=== PATIENT | male | born 1985 | race African-American/Black ===

== ENCOUNTER 2025-08-23 11:23 | Emergency (ER) | payer OTHER, SELFPAY ==
[2025-08-23] VITALS (10 sets, daily range): BP systolic 126–151; BP diastolic 79–101; PULSE 66–81; TEMP 36.9; O2SAT 97; BMI 33.7
--- NOTE | 2025-08-23 11:45 | ECG_ITS ---
[facility] Test Date: 2025-08-23 Pat Name: ELOISE CASAREZ Department: Room: - Gender: Male [employer] Jailer: : 1985 Requested By: [id number] Order Number: [id number] Reading MD: JUAN PABLO LEWIS M.D. Measurements Intervals [place] Rate: 70 P: 43 [place]: 174 QRS: 71 QRSD: 94 T: 32 QT: 360 QTc: 380 Interpretive Statements 1100 Sinus rhythm 9110 normal ECG No previous ECG available for comparison Electronically Signed On 08-23-2025 14:20:58 EST by JUAN PABLO LEWIS M.D.
--- NOTE | 2025-08-23 11:46 | XR_ITS ---
[facility] [place] [address] Patient Name: ELOISE CASAREZ MRN: [id number] date: 1985 Sex: M Assigned Patient Location: ER Current Patient Location: ED.MAIN Accession/Order Number: [id number] Exam Date: 08/23/2025 12:15 Report Date: 08/23/2025 12:54 At the request of: YAMILET GARCIA MD Procedure: XR chest 1V PORTABLE AP ERECT CHEST 1157 hours CLINICAL HISTORY: Hypertension . Chest pressure and hemoptysis. Headaches, dizziness and blurred vision. COMPARISON: None The heart is within normal limits. There is no vascular congestion. The lungs, as visualized, are clear. There is no effusion or pneumothorax. The osseous structures are intact. XR/XR chest 1V IMPRESSION: NO ACUTE FINDINGS Impression dictated by: Quin Cabrera M.D. 08/23/2025 12:54 PM Dictation Location: [place] [address] Electronically authenticated by: [id number] Y Date: 08/23/2025 12:54
--- NOTE | 2025-08-23 11:46 | ED_ITS ---
HPI HPI - General Adult General Chief complaint: Headache Stated complaint: HEADACHE BLURRED VISION Time Seen by Provider: 08/23/25 11:26 Source: patient Mode of arrival: walk-in History of Present Illness HPI narrative: 40-year-old male presents for complaints of elevated blood pressure and abdominal pain. He said the abdominal pain is a small localized area of the epigastric region for a few months. He states that last week he was driving and he was confused for a few minutes and that resolved and has not recurred. He checked his blood pressure and it was high and he was worried. He has never been treated for hypertension though there is a family history of it. No vomiting. He also states he has been coughing up some blood. Related Data Previous Rx's ?Medication ?Instructions ?Recorded esomeprazole magnesium 20 mg 20 mg PO DAILY 28 days #2 8 caps 08/23/25 capsule,delayed release (Nexium) Allergies Allergy/AdvReac Type Severity Reaction Status Date / Time fentanyl Allergy overdose Verified 08/23/25 11:28 Review of Systems ROS Narrative A ten point review of systems is negative except as noted above. PFSH PFSH Social History Little interest or pleasure in doing things: not at all Feeling down, depressed, or hopeless: not at all Exam Narrative Exam Narrative: Nurses note and vital signs reviewed General:The patient appears well and in no apparent distress.Patient is resting comfortably on cart. Skin:Warm, dry, no pallor noted.There is no rash noted. Head:Normocephalic, atraumatic Eye: Normal conjunctiva, no drainage Ears, Nose, Mouth, and Throat: oral mucosa is moist. Nares patent. Cardiovascular:Regular Rate and Rhythm Respiratory:Patient is in no distress, no accessory muscle use, lungs are clear to auscultation, no wheezing, rales or rhonchi Back:non-tender, no CVA tenderness bilaterally to percussion. GI:Normal bowel sounds, mild tenderness to palpation in the epigastric area. No masses or distention Musculoskeletal: The patient has no evidence of calf tenderness, no pitting edema, symmetrical pulses noted bilaterally Neurological:A&O, normal speech; upper lower extremity strength 5 out of 5 and symmetric Psychiatric:Cooperative Constitutional Vital Signs, click to edit/add: Last Vital Signs Temp 98.4 F 08/23/25 11:28 Pulse 69 08/23/25 12:51 Resp 19 08/23/25 12:51 BP 126/79 08/23/25 13:14 Pulse Ox 97 08/23/25 11:28 O2 Del Method Room Air 08/23/25 11:28 Course Vital Signs Vital signs: Vital Signs Temperature 98.4 F 08/23/25 11:28 Pulse Rate 78 08/23/25 11:28 Respiratory Rate 16 08/23/25 11:28 Blood Pressure 151/101 H 08/23/25 11:28 Pulse Oximetry 97 08/23/25 11:28 Oxygen Delivery Method Room Air 08/23/25 11:28 Temperature 98.4 F 08/23/25 11:28 Pulse Rate 69 08/23/25 12:51 Respiratory Rate 19 08/23/25 12:51 Blood Pressure 126/79 08/23/25 13:14 Pulse Oximetry 97 08/23/25 11:28 Oxygen Delivery Method Room Air 08/23/25 11:28 Medical Decision Making MDM Narrative Medical decision making narrative: His workup here is negative and his blood pressure normalized without intervention. He is being referred to GI for follow-up and was prescribed Nexium. He will get a blood pressure recheck from his family doctor. Treatment diagnosis and follow-up were discussed with the patient. Recheck blood pressure here is 126/79. Lab Data Lab results reviewed: Yes I reviewed the patient's lab results Labs: Lab Results 08/23/25 08/23/25 Range/Units 11:55 12:55 WBC 5.8 (4.0-11.0) 10^3/uL RBC 5.20 (4.70-6.10) 10^6/uL Hgb 14.8 (14.0-18.0) g/dL Hct 45.2 (42.0-54.0) % MCV 86.9 (80.0-94.0) fL MCH 28.5 (25.9-34.0) pg MCHC 32.7 (29.9-35.2) g/dL RDW 13.0 (11.0-15.0) % Plt Count 222 (150-450) 10^3/uL MPV 10.6 (9.5-13.5) fL Neut % (Auto) 54.1 (43.0-75.0) % Lymph % (Auto) 37.3 (20.5-60.0) % [place] % (Auto) 6.9 (1.7-12.0) % Eos % (Auto) 1.0 (0.9-7.0) % Baso % (Auto) 0.5 (0.2-2.0) % Neut # (Auto) 3.1 (1.4-6.5) 10^3/uL Lymph # (Auto) 2.2 (1.2-3.8) 10^3/uL [place] # (Auto) 0.4 (0.3-0.8) 10^3/uL Eos # (Auto) 0.1 (0.0-0.7) 10^3/uL Baso # (Auto) 0.0 (0.0-0.1) 10^3/uL Abs Immat Gran (auto) 0.01 (0.00-0.03) 10^3/uL Imm/Tot Granulo (auto) 0.2 (0.0-0.5) % Sodium 137 (136-145) mmol/L Potassium 3.7 (3.5-5.1) mmol/L Chloride 102 (98-107) mmol/L Carbon Dioxide 26.5 (21.0-32.0) mmol/L Anion Gap 12.2 BUN 13.0 (7.0-18.0) mg/dL Creatinine 1.09 (0.70-1.30) mg/dL Est GFR ( Amer) >60 (>=60 mL/min/1.73m^2) Est GFR (Non-Af Amer) >60 (>=60 mL/min/1.73m^2) BUN/Creatinine Ratio 11.9 Glucose 102 (74-106) mg/dL Calcium 8.8 (8.5-10.1) mg/dL Total Bilirubin 0.5 (0.2-1.0) mg/dL Direct Bilirubin 0.1 (0.0-0.2) mg/dL AST 39 H (15-37) U/L ALT 54 (16-63) U/L Alkaline Phosphatase 74 (46-116) U/L Total Protein 7.4 (6.4-8.2) g/dL Albumin 4.2 (3.4-5.0) g/dL Globulin 3.2 g/dL Albumin/Globulin Ratio 1.3 Amylase 65 (25-115) U/L Lipase 27.0 (16.0-77.0) U/L Urine Color Lt. yellow (YELLOW) Urine Clarity Clear (CLEAR) Urine pH 6.0 (5.0-9.0) Ur Specific [place] 1.025 (1.005-1.025) Urine Protein Negative (NEG/TRACE) mg/dL Urine Glucose (UA) Negative (NEGATIVE) mg/dL Urine Ketones Negative (NEGATIVE) mg/dL Urine Occult Blood Trace-i (NEGATIVE) Urine Nitrite Negative (NEGATIVE) Urine Bilirubin Negative (NEGATIVE) Urine Urobilinogen 0.2 (0.2-1.0) EU/dL Ur Leukocyte Esterase Negative (NEGATIVE) Urine RBC 0-2 (0-2) #/HPF Urine WBC None seen (NONE SEEN) #/HPF Ur Squamous Epith Cells Rare (NONE/RARE) #/LPF Urine Crystals None seen (None Seen) #/HPF Urine Bacteria Trace A (NONE SEEN) #/HPF Urine Casts None seen (NONE SEEN) #/LPF Urine Mucus Trace A (NONE SEEN) Imaging Data Chest x-ray: Radiologist's impression: ITS Impressions Chest X-Ray 08/23/25 11:46 IMPRESSION: NO ACUTE FINDINGS Impression dictated by: Quin Cabrera M.D. 08/23/2025 12:54 PM Dictation [email or web address] Electronically authenticated by: [id number] Y Date: 08/23/2025 12:[address] 08/23/25 11:46 IMPRESSION: NO ACUTE INTRACRANIAL ABNORMALITY. Impression dictated by: Quin Cabrera M.D. 08/23/2025 1:06 PM Dictation Location: [employer] Electronically authenticated by: [id number] Y Date: 08/23/2025 13:06 ECG Data Attestation: I personally reviewed and interpreted this ECG as follows: (EKG on my interpretation shows sinus rhythm with a rate of 70 and no acute change.) Discharge Plan Discharge Chief Complaint: Headache Clinical Impression: Headache, Abdominal pain Patient Disposition: Home, Self-Care Time of Disposition Decision: 13:26 Condition: Good Mode of Transportation: Private Vehicle Prescriptions / Home Meds: New esomeprazole magnesium [Nexium] 20 mg capsule,delayed release(DR/EC) 20 mg PO DAILY 28 Days Qty: 28 0RF Print Language: Lao Instructions: Acute Headache (ED), Abdominal Pain (ED) Additional Instructions: Blood pressure recheck in your doctor's office. Referrals: Physician,Non-Staff, MD [Primary Care Provider] - 1 week
--- NOTE | 2025-08-23 11:46 | CT_ITS ---
[facility] [place] [id number] Patient Name: ELOISE CASAREZ MRN: [id number] date: 1985 Sex: M Assigned Patient Location: ER Current Patient Location: ED.MAIN Accession/Order Number: [id number] Exam Date: 08/23/2025 12:15 Report Date: 08/23/2025 13:06 At the request of: YAMILET GARCIA MD Procedure: CT head/brain wo con CT BRAIN WITHOUT CONTRAST: CLINICAL HISTORY: Hypertension. Confusion, headache, dizziness and blurred vision intermittently for several days. COMPARISON: None TECHNIQUE: Contiguous axial unenhanced images were obtained through the brain. This CT exam was performed using one or more following dose reduction techniques: Automated exposure control, adjustment of the mA and/or kV according to patient size, or use of iterative reconstruction technique. FINDINGS: The ventricles are normal in size and position. There are no areas of abnormal attenuation. There is no hemorrhage, mass effect or extra-axial collections. The imaged paranasal sinuses and mastoid air cells are clear. CT/CT head/brain wo con IMPRESSION: NO ACUTE INTRACRANIAL ABNORMALITY. Impression dictated by: Quin Cabrera M.D. 08/23/2025 1:06 PM Dictation Location: [facility] Electronically authenticated by: [id number] Y Date: 08/23/2025 13:06
[2025-08-23 12:19] LABS: Hematocrit 45.2 % (42.0-54.0); Hemoglobin 14.8 g/dL (14.0-18.0); Immature Granulocytes Abs Auto 0.01 10^3/uL (0.00-0.03); Immature Granulocytes Pct Auto 0.2 % (0.0-0.5); Lymphocytes Absolute Auto 2.2 10^3/uL (1.2-3.8); Mean Corpuscular HGB Conc 32.7 g/dL (29.9-35.2); Mean Corpuscular Hemoglobin 28.5 pg (25.9-34.0); Mean Corpuscular Volume 86.9 fL (80.0-94.0); Platelet Count 222 10^3/uL (150-450); Red Blood Count 5.20 10^6/uL (4.70-6.10); White Blood Count 5.8 10^3/uL (4.0-11.0)
[2025-08-23 12:27] LABS: Anion Gap 12.2; Blood Urea Nitrogen 13.0 mg/dL (7.0-18.0); Calcium 8.8 mg/dL (8.5-10.1); Carbon Dioxide 26.5 mmol/L (21.0-32.0); Chloride 102 mmol/L (98-107); Estimated GFR (African America >60 (>=60 mL/min/1.73m^2); Estimated GFR (Non-African Ame >60 (>=60 mL/min/1.73m^2); Glucose 102 mg/dL (74-106); Potassium 3.7 mmol/L (3.5-5.1); Sodium 137 mmol/L (136-145)
[2025-08-23 12:30] LABS: Alanine Aminotransferase 54 U/L (16-63); Albumin Globulin Ratio 1.3; Albumin Level 4.2 g/dL (3.4-5.0); Alkaline Phosphatase 74 U/L (46-116); Amylase 65 U/L (25-115); Aspartate Amino Transferase 39 U/L (15-37); Globulin 3.2 g/dL; Lipase 27.0 U/L (16.0-77.0); Total Protein 7.4 g/dL (6.4-8.2)
[2025-08-23 13:06] LABS: Glucose Urine UA NEGATIVE (NEGATIVE)
[2025-08-23 13:23] LABS: Cast Seen? NONE SEEN #/LPF (NONE SEEN); Crystals Seen? None Seen #/HPF (None Seen)
== END 2025-08-23 13:25 | disposition home or self-care (01) ==
PROVIDERS: Emergency Provider Emergency Medicine
DX: R10.13 Epigastric pain (principal); R51.9 Headache, unspecified; R03.0 Elevated blood-pressure reading, without diagnosis of hypertension
CPT/HCPCS: 36415; 70450; 71045; 80048; 80076; 81001; 82150; 83690; 85025; 93005; 99284